=== PATIENT | male | born 1955 | race Caucasian/White ===

== ENCOUNTER 2020-12-05 09:50 | Outpatient (CLI) | payer OTHER | END 2020-12-05 21:09 | disposition home or self-care (01) | LOC: SRD 09:50 | PROVIDERS: ATTEND Urology | DX: M47.814 Spondylosis without myelopathy or radiculopathy, thoracic region (principal); M77.8 Other enthesopathies, not elsewhere classified; M47.816 Spondylosis without myelopathy or radiculopathy, lumbar region; M51.27 Other intervertebral disc displacement, lumbosacral region; R10.9 Unspecified abdominal pain | CPT/HCPCS: 72146; 72148 ==

== ENCOUNTER 2022-09-03 17:00 | Outpatient (CLI) | payer OTHER, MEDICARE | END 2022-09-03 18:00 | disposition home or self-care (01) | LOC: SRD 17:00 | PROVIDERS: ATTEND Internal Medicine | DX: Z87.01 Personal history of pneumonia (recurrent) (principal); M47.814 Spondylosis without myelopathy or radiculopathy, thoracic region; M19.011 Primary osteoarthritis, right shoulder | CPT/HCPCS: 71046-TC ==